=== PATIENT | male | born 1985 | race Hispanic/Latino ===

== ENCOUNTER 2017-01-05 22:57 | Emergency (ER) | payer OTHER ==
[~2017-01-05 22:57] MED LIST: OMEP-113 PO
[2017-01-05 23:09] VITALS: BP 140/93; PULSE 69; RESP 16; O2SAT 100
--- NOTE | 2017-01-06 00:02 | ED.REPORT ---
HPI- Male Date of Service Jan 06, 2017 ED Provider: MD Feliz This is a 31 year old male presenting to the emergency department complaining of R testicular pain that began 2 weeks ago. Reports shooting pain to lower abdomen at times. Pt visited his PCP, completed doxycycline course and had negative STI check. However, pain continues to persist. Denies fever, chills, nausea, vomiting, constipation, diarrhea, or dysuria. Nursing Notes Stated Complaint: DISCOMFORT IN GROIN AREA Chief Complaint: Male Abdominal Pain Nursing Notes Reviewed: Yes Allergies: Coded Allergies: No Known Allergies (Verified Allergy, Unknown, 03/10/15) Scheduled Omeprazole Magnesium (Omeprazole) 20 Mg Capsule.dr 20 MG PO DAILY General Time Seen by MD: 00:01 Chief Complaint Testicle painful right Hx Obtained From: Patient Arrived By: Walk-in Onset Occurred: More than a week ago... (2 weeks) Symptom Duration: Since onset Severity: Current: Moderate Pertinent Negative: Pt denies other symptoms Recent Healthcare: No recent doctor visit, No recent hospitalization Similar Sx Previous: No Past Medical History Past Medical History Denies Past Surgical History Ear tubes as a child Smoking History Light Tobacco Smoker Social History Alcohol Use: Denies alcohol use Drug Use: Denies drug use Ambulatory Status Independent Review of Systems Constitutional: Denies: Chills, Fever GI: Reports: Abdominal pain, Denies: Nausea, Vomiting Male: Reports Testicular pain, Denies Urinary frequency, Denies Urinary urgency Musculoskeletal: Denies: Extremity pain Complete sys rev & neg: except as marked. Physical Exam Initial Vital Signs Vital Signs (First) Date Time Temp Pulse Resp B/P Pulse Ox O2 Delivery O2 Flow Rate FiO2 01/05/17 23:09 36.7 69 16 140/93 100 Room Air Initial VS: Reviewed General/Constitutional: Well-developed, Well-nourished Head / Eyes: Atraumatic, Normocephalic, PERRL ENT: Mucous membranes moist, Conjunctiva normal, No scleral icterus Neck: Supple, Non-tender, Full range of motion Respiratory: Breath sounds normal, Clear to auscultation, No respiratory distress Cardiovascular: Regular rate & rhythm, Heart sounds normal, Intact distal pulses Abdomen / GI: Soft, Non-tender, No guarding, No rebound, No distention Extremities: Vascular intact, Neuro intact, No swelling, No tenderness Skin: Warm, Dry, No cyanosis Neurologic: Alert, Oriented, Nonfocal Psychiatric: Mood/affect normal, Behavior normal, Normal thought content Male Genitourinary: Inspection NL, Penis NL, No penile discharge, Testes NL, Cremasteric reflex NL, Epididymis NL, No mass, No hernia, No lesions or rash Interpretation & Diagnostics Interpretation & Diagnostics: TESTICLE US Varicocele without evidence of testicular abscess Lab Results Interpretation Result Diagram: 01/06/175 01/06/17 0035 Test 01/06/17 00:30 01/06/17 00:35 01/06/17 00:36 White Blood Count 12.1th/mm3 (3.8-10.1) Red Blood Count 5.01mil/mm3 (4.40-5.80) Hemoglobin 15.9g/dL (13.8-17.2) Hematocrit 44.4% (41.0-50.0) Mean Corpuscular Volume 88.6fL (81-100) Mean Corpuscular Hemoglobin 31.7pg (27.0-35.0) Mean Corpuscular Hemoglobin Concent 35.8% (32.0-37.0) Red Cell Distribution Width 11.9% (12.3-15.4) Platelet Count 262bil/L (150-400) Neutrophils (%) (Auto) 67.2% (40-74) Lymphocytes (%) (Auto) 22.5% (14-46) Monocytes (%) (Auto) 8.5% (4-12) Eosinophils (%) (Auto) 1.0% (0-5) Basophils (%) (Auto) 0.5% (0-3) Sodium Level 140mEq/L (134-144) Potassium Level 3.8mEq/L (3.5-5.2) Chloride Level 102mEq/L (97-108) Carbon Dioxide Level 23mmol/L (18-29) Blood Urea Nitrogen 16mg/dL (6-20) Creatinine 0.80mg/dL (0.76-1.27) Estimat Glomerular Filtration Rate 120mL/min (>59) Glucose Level 103mg/dL (60-99) Calcium Level 9.7mg/dL (8.5-10.1) Total Bilirubin 0.3mg/dL (0.0-1.2) Aspartate Amino Transf (AST/SGOT) 23U/L (0-50) Alanine Aminotransferase (ALT/SGPT) 33U/L (0-44) Alkaline Phosphatase 55U/L (25-150) Total Protein 7.4g/dL (6.4-8.4) Albumin 4.7g/dL (3.4-5.0) [place] Top Tube Received (Received) Urine Color Yellow (YELLOW) Urine Appearance Clear (CLEAR,HAZY) Urine pH 5.5 (5.0-8.0) Urine Specific [place] 1.030 (1.003-1.035) Urine Protein Negativemg/dL (NEG,TRACE) Urine Glucose (UA) Negativemg/dL (NEGATIVE) Urine Ketones Negativemg/dL (NEGATIVE) Urine Occult Blood Negative (NEGATIVE) Urine Nitrite Negative (NEGATIVE) Urine Bilirubin Negative (NEGATIVE) Urine Urobilinogen Normalmg/dL (NORMAL) Urine Leukocyte Esterase Negative (NEGATIVE) Urine RBC 0-2/hpf (0-2) Urine WBC 0-5/hpf (0-5) Urine Epithelial Cells Few/hpf (NONE-MOD) Urine Crystals None seen (NONE SEEN) Urine Bacteria Few/hpf (NONE-FEW) Urine Hyaline Casts None/lpf (NONE) Urine Granular Casts None seen (NONE SEEN) Urine Waxy Casts None seen (NONE SEEN) Urine Red Blood Cell Casts None seen (NONE SEEN) Urine White Blood Cell Casts None seen (NONE SEEN) Urine Mucus Present (None Seen) Urine Trichomonas None seen (NONE SEEN) Urine Yeast None (NONE SEEN) Urinalysis Comment None Urine Culture Reflexed Not indicated Re-Eval/Medical Decision Med Decision/Clinical Course Torsion ruled out based on ultrasound. Abscess ruled out based on ultrasound. Alden did complete a 10 day course of doxycycline so infectious epididymitis seems less likely. I will send out a GC chlamydia just to confirm this. Recommend urology follow up. Short course of Cameron prescribed for pain. Counseled Regarding: Diagnosis, Lab results, Need for follow-up, When/why to return to ED Discharge & Departure Impression: Primary Impression: Varicocele Additional Impression: Testicular pain Disposition: Home Discharge Condition All VS Reviewed: Yes Condition: Stable Patient Instructions: Varicocele (ED) Additional Instructions: Wear underpants that provide better testicular support. Apply mupirocin ointment as directed twice daily for one week. Take 1 Cameron every 6 hours as needed for pain control. Follow-up with your primary care provider. Return to the emergency department if you develop any new or worsening symptoms. Do not drive, consume alcohol, or consume acetaminophen while taking the prescribed narcotic medication. Referrals: Courtney Greenwood MD [facility] Scribe Attestation Portions of this note were transcribed by Michael Mendoza. I, Dr. Piper personally performed the history, physical exam and medical decision-making; I reviewed and confirmed the accuracy of the information in the transcribed note. Signed by: Michael Mendoza. 01/05/2017, 03:00. Clifford Piper DO Jan 06, 2017 00:02 MICHAEL MENDOZA Jan 06, 2017 00:05
[2017-01-06 00:40] LABS: APPEARANCE,URINE CLEAR (CLEAR,HAZY); COLOR,URINE YELLOW (YELLOW); OCCULT BLOOD,URINE NEGATIVE (NEGATIVE); PH,URINE 5.5 (5.0-8.0); UROBILINOGEN,URINE NORMAL (NORMAL)
[2017-01-06 00:42] LABS: BASOPHILS % (AUTO) 0.5 % (0-3); MONOCYTES % (AUTO) 8.5 % (4-12); Mean Corpuscular Hemoglobin 31.7 pg (27.0-35.0); Mean Corpuscular Volume 88.6 fL (81-100); NEUTROPHILS % (AUTO) 67.2 % (40-74); Platelet Count 262 bil/L (150-400)
[2017-01-06 02:29] VITALS: BP 124/84; PULSE 63; RESP 16; O2SAT 98
--- NOTE | 2017-01-06 08:53 | DRSVH ---
PROCEDURE: US TESTICULAR SONOGRAM WITH DOPPLER INDICATIONS: right testicular pain TECHNIQUE: Real-time scanning was performed of the scrotum and testicles, with image documentation. Color and p ulse Doppler interrogation was performed of both testicles. COMPARISON: None. FINDINGS: Right: Testicle is normal in size at 3.1 x 1.9 x 3.0 cm, and homogenous in echotexture. Epididymis is normal in overall size and morphology. Patient suggests focal pain over the right epididymis Trac e hydrocele and small varicocele. Overlying scrotal skin is normal in thickness. Left: Testicle is normal in size at 3.4 x 1.8 x 2.4 cm, and homogeneous in echotexture. Epididymis is normal in overall size and morphology. Trace hydrocele. Overlying scrotal skin is normal in thic kness. Doppler: Color and pulse Doppler demonstrate normal and symmetric arterial flow in both testicles. IMPRESSION: 1. Patient expresses focal pain over the right epididymis, otherwise examination demonstrating no def inite acute process. Mild developing epididymitis cannot be excluded. 2. Small right varicocele. Note: These findings are concordant with the preliminary interpretation. Dictated by: Duke MCCLELLAND Interpreted: Florence Cruz MD on 01/06/2017 at 8:51 Transcribed by: DIANA on 01/06/2017 at 8:52 Approved by: Florence Cruz M.D. on 01/06/2017 at 17:09
== END 2017-01-06 02:31 | disposition home or self-care (01) ==
LOC: SED 22:57
DX: I86.1 Scrotal varices (principal); N50.811 Right testicular pain; F17.290 Nicotine dependence, other tobacco product, uncomplicated

== ENCOUNTER 2017-01-21 16:42 | Emergency (ER) | payer OTHER ==
[~2017-01-21] VITALS: Ht 177.8 cm; Wt 97.7 kg
[2017-01-21 16:50] VITALS: BP 145/85; PULSE 72; RESP 16; O2SAT 100
--- NOTE | 2017-01-21 16:55 | ED.REPORT ---
HPI-General Illness Date of Service Jan 21, 2017 ED Provider: The patient is a 31 year old otherwise healthy male who presents to the emergency department after he received a call about a positive chlamydia test. The patient had experienced testicular pain and swelling over the last few weeks. He was initially evaluated at the walk in clinic and was prescribed amoxicillin. This did somewhat improve his pain. He was evaluated in the emergency department a few days ago and was diagnosed with a varicocele and was discharged home with pain medication. He returns today concerned he needs different antibiotics. He denies increased pain, dysuria or penile discharge. Nursing Notes Stated Complaint: QUESTION ABOUT MEDS Chief Complaint: General Complaint Nursing Notes Reviewed: Yes Allergies: Coded Allergies: No Known Allergies (Verified Allergy, Unknown, 01/21/17) Scheduled Omeprazole Magnesium (Omeprazole) 20 Mg Capsule.dr 20 MG PO DAILY General Time Seen by MD: 16:55 Chief Complaint Other (testicular pain) Hx Obtained From: Patient Arrived By: Walk-in Sudden in Onset?: No Onset Occurred: More than a week ago... Symptom Duration: Since onset Quality: Painful Severity: Current: Mild Severity: Maximum: Moderate Recent Healthcare: No recent hospitalization, Recent doctor visit Similar Sx Previous: No Past Medical History Past Medical History Denies Past Surgical History Ear tubes as a child Family History Noncontributory Smoking History Light Tobacco Smoker Social History Alcohol Use: Denies alcohol use Drug Use: Denies drug use Other Social History: Local resident Ambulatory Status Independent Review of Systems Full Review of Systems Male: Reports Testicular pain, Reports Testicular swelling, Denies Dysuria, Denies Penile discharge, Denies Penile lesion Complete sys rev & neg: except as marked. Physical Exam Vital Signs Vital Signs Date Time Temp Pulse Resp B/P Pulse Ox O2 Delivery O2 Flow Rate FiO2 01/21/17 19:39 85 16 98 Room Air 01/21/17 16:50 37.2 72 16 145/85 100 Room Air Initial VS: Reviewed Head / Eyes: Atraumatic, Normocephalic, PERRL ENT: Mucous membranes moist, Conjunctiva normal, No scleral icterus Neck: Supple, Non-tender, Full range of motion Respiratory: Breath sounds normal, Clear to auscultation, No respiratory distress Cardiovascular: Regular rate & rhythm, Heart sounds normal, Intact distal pulses Abdomen / GI: Soft, Non-tender, No guarding, No rebound, No distention Lymphatic: No lymphadenopathy Extremities: Vascular intact, Neuro intact, No swelling, No tenderness Skin: Warm, Dry, No cyanosis Neurologic: Alert, Oriented, Nonfocal Psychiatric: Mood/affect normal, Behavior normal, Normal thought content General/Constitutional: Awake, Alert, Well appearing Male Genitourinary: Patient refused exam, Atraumatic, Inspection NL, Penis NL, No penile discharge, No meatal blood, Testes NL, No mass, No hernia, No lesions or rash Circumcised penis. No testicular swelling or tenderness. Re-Eval/Medical Decision Med Decision/Clinical Course The patient is a 31 year old otherwise healthy male who presents to the emergency department after he received a call about a positive chlamydia test. The patient had experienced testicular pain and swelling over the last few weeks. He was initially evaluated at the walk in clinic and was prescribed amoxicillin. This did somewhat improve his pain. He was evaluated in the emergency department a few days ago and was diagnosed with a varicocele and was discharged home with pain medication. He returns today concerned he needs different antibiotics. He denies increased pain, dysuria or penile discharge. Patient afebrile stable vital signs on examination as above. examination completely normal as documented above. While he is asymptomatic he did have a positive chlamydia test. I am unsure that amoxicillin would adequately cover him for chlamydia though it seems that this did resolve his symptoms. That being said with an abundance of caution I will go ahead and treat him with standard 250 mg of intramuscular ceftriaxone and 2 g of azithromycin. Follow- up pressure precautions were reviewed in detail and he was discharged in good condition. Source of Hx: Old records Time of Eval: 18:35 Re-Evaluation/Progress Note: Discussed plan for discharge. All questions were addressed. Counseled Regarding: Diagnosis, Need for follow-up, When/why to return to ED Discharge & Departure Primary Impression: Chlamydia Additional Impressions: Sexually transmitted infection Dysuria Testicular pain Disposition: Home Discharge Condition All VS Reviewed: Yes Condition: Stable Patient Instructions: Chlamydia Infection (ED) Additional Instructions: Thank you for seeking care at the emergency room. Our primary goal today in the ED was to evaluate you for any life-threatening conditions. Your evaluation was reassuring. You will be discharged with a prescription for ceftriaxone and azithromycin. You should follow-up with a primary doctor in the next week. We have given you a referral to the residency clinic. You should return to the ED immediately if you develop increased pain, penile discharge, recurrent rash, fevers, vomiting, or any other concerning signs or symptoms. Thank you for letting us partake in your care today. Referrals: [facility] Scribe Attestation Portions of this note were transcribed by Deloris Calderon. I, Dr. Murray personally performed the history, physical exam and medical decision-making; I reviewed and confirmed the accuracy of the information in the transcribed note. Signed by: Kulwinder Tomlinson, 01/21/2017 and 1929. Ole Murray MD Jan 21, 2017 16:55 Deloris Calderon Jan 21, 2017 18:37
[2017-01-21] MEDS ORDERED: cefTRIAXone Inj 250 MG, Lidocaine PF 1% Inj 0.9 ML in Syringe 1 EACH IM ONE (18:45)
[2017-01-21 19:39] VITALS: PULSE 85; RESP 16; O2SAT 98
== END 2017-01-21 19:40 | disposition home or self-care (01) ==
LOC: SED 16:42
DX: A74.9 Chlamydial infection, unspecified (principal); F17.200 Nicotine dependence, unspecified, uncomplicated
CPT/HCPCS: 96372; 99283; J0696